=== PATIENT | male | born 1960 | race Caucasian/White ===

== ENCOUNTER 2022-01-30 07:38 | Day surgery (SDC) | payer OTHER ==
[~2022-01-30] VITALS: Ht 185.4 cm; Wt 85.0 kg
[~2022-01-30 07:38] MED LIST: ALBUIS; ATIVAN0.5 MG PO; FISH1000; GABA300 PO; GABAPENTIN600 MG PO; HYDACE5 PO; LORA.5; LORA2 PO; MIRT15ST PO; MULTIPLE VITAM1 EACH PO; NAPR220 PO; PROM25 PO; Prinivil10 MG PO; RISP1; RISP1 PO; SILSUL1TC TOP; TRAM50; TRAM50 PO; VITAMENS; ZOLP10; ZOLP10 PO
[2022-01-30] MEDS ORDERED: REMERON15 M1 (08:07)
[2022-01-30] MEDS ORDERED: TAMS.4ER (08:07)
--- NOTE | 2022-01-30 08:41 | NUR ---
01/30/22 0841 MAURA SAUCEDO 0.15MG OF EPI (1MG/1ML) ADDED TO 30MLS OF ROPIVACAINE 0.5% TO CREATE A LOCAL SOLUTION OF ROPIVACAINE 0.5% WITH EPI 1:200,000. LOCAL POURED ONTO STERILE FIELD FOR USE DURING CASE.
--- NOTE | 2022-01-30 11:11 | NUR ---
01/30/22 Gideon Fraga PT REPORTED 4/10 PAIN ON DISCHARGE. HOWEVER, HE SAID HIS PAIN HAD IMPROVED SINCE [facility] ADMINISTRATION AND WAS NOW TOLERABLE TO GO HOME AND MANAGE WITH PERSCRIBED PO MEDICATION. HE APPEARED CALM AND RELAXED.
== END 2022-01-30 11:09 | disposition home or self-care (01) ==
LOC: ORSCSDS 07:38
PROVIDERS: Podiatrist Foot & Ankle Surgery
PROC: 0JCR0ZZ Extirpation of Matter from Left Foot Subcutaneous Tissue and Fascia, Open Approach (ICD-10-PCS; principal; 2022-01-30 09:00)
DX: S91.342A Puncture wound with foreign body, left foot, initial encounter (principal); Z18.81 Retained glass fragments; E03.9 Hypothyroidism, unspecified; N40.0 Benign prostatic hyperplasia without lower urinary tract symptoms; F41.9 Anxiety disorder, unspecified; Z79.899 Other long term (current) drug therapy
CPT/HCPCS: J0171; J0690; J1100; J2250; J2405; J2704; J2795; J3010; J7120

== ENCOUNTER → 2023-12-21 | Outpatient (CLI) | payer OTHER ==
[~2023-12-21] MED LIST changes: +REMERON15 M1; +TAMS.4ER
[2023-12-24 19:48] LABS: 6-ACETYLMORPHINE, URN, QUANT <10 ng/mL; CODEINE, URN, QUANT <20 ng/mL; HYDROCODONE, URN, QUANT <20 ng/mL; HYDROMORPHONE, URN, QUANT <20 ng/mL; MORPHINE, URN, QUANT <20 ng/mL; NORHYDROCODONE, URN, QUANT <20 ng/mL; NOROXYCODONE, URN, QUANT <20 ng/mL; NOROXYMORPHONE, URN, QUANT <20 ng/mL; OXYCODONE, URN, QUANT <20 ng/mL; OXYMORPHONE, URN, QUANT <20 ng/mL
== END ==
LOC: LAB SHORT 10:26 → LAB 10:26
PROVIDERS: Hospitalist
DX: G89.4 Chronic pain syndrome (principal)
CPT/HCPCS: G0480

== ENCOUNTER 2024-07-17 08:08 | Day surgery (SDC) | payer OTHER ==
[2024-07-17] VITALS (17 sets, daily range): BP systolic 98–153; BP diastolic 66–95
[~2024-07-17] VITALS: Ht 185.4 cm; Wt 80.8 kg
[~2024-07-17 08:08] MED LIST changes: +AMPDEX10CR PO; +ESZO2 PO; +Lactated Ringer's 1,000 ML IV SCH; +Vitamin D1000 UNI1 PO
--- NOTE | 2024-07-17 08:57 | NUR ---
Ambulatory in Day Surgery WITH STEADY GAIT. History, Chart, Medications and Allergies reviewed before start of procedure. Pre-Op teaching done. Pt verbalizes understanding. Patient States Post-Procedure ride home has been arranged WITH DAUGHTER.
[2024-07-17] MEDS ORDERED: propofoL 40 ML IV ONE (09:15)
--- NOTE | 2024-07-17 09:39 | NUR ---
07/17/24 0939 Tyler Hawkins CONFIRMED AND REVIEWED H&P, MEDCICATIONS, ALLERGIES, MEDICAL HISTORY, RESPIRATORY HISTORY, VITAL SIGNS, 3-LEAD EKG, CONSENTS, AND PHYSICIAN ORDERS. PATIENT CONFIRMS NPO STATUS AND AGREES WITH SCHEDULED PROCEDURE. MONITOR INTACT WITH CONTINUOUS PULSE OXIMETRY, CAPNOGRAPHY, 3-LEAD EKG, INTERMITTENT BP. SUPPLEMENTAL O2 TO BE TITRATED THROUGHOUT PROCEDURE TO MAINTAIN O2 SATURATION ABOVE 90%. PATIENT DETERMINED TO BE ASA APPROPRIATE FOR PROPOFOL SEDATION PRIOR TO START OF PROCEDURE BY DR. MCCONNELL
--- NOTE | 2024-07-17 10:24 | NUR ---
REVIEWED DISCHARGE INSTRUCTIONS.PT VERBALIZED UNDERSTANDING. PT DISCHARGED TO HOME-OUT VIA WHEELCHAIR WITH DISCHARGE INSTRUCTIONS AND BELONGINGS ON HAND.
== END 2024-07-17 10:24 | disposition home or self-care (01) ==
LOC: ORSCMMR 08:08 → ORD 09:00 → ORSCMMR 10:24
PROVIDERS: Internal Medicine Gastroenterology
PROC: 0DBP8ZX Excision of Rectum, Via Natural or Artificial Opening Endoscopic, Diagnostic (ICD-10-PCS; principal; 2024-07-17 09:00)
DX: Z12.11 Encounter for screening for malignant neoplasm of colon (principal); Z86.0101 Personal history of adenomatous and serrated colon polyps; K62.89 Other specified diseases of anus and rectum; K62.1 Rectal polyp; F90.9 Attention-deficit hyperactivity disorder, unspecified type; Z79.899 Other long term (current) drug therapy
CPT/HCPCS: 88305; J2704; J7120